=== PATIENT | female | born 1995 | race Caucasian/White ===

== ENCOUNTER → 2016-11-29 | Outpatient (CLI) | payer OTHER ==
[2016-12-01 15:20] LABS: BLACK RACE non-Black (()); GESTIONAL AGE FOR RISK ESTIMAT Scan estimate (()); MATERNAL WEIGHT/LBS 107 lbs (()); RECOMMENDED FOLLOW UP None. (()); TRISOMY 18 ESTIMATED RISK < 1/100 (())
[2016-12-02 07:25] LABS: GENERAL TEST INFO (QUAD SCREE) SEE COMMENTS (()); INHIBIN SEE COMMENTS (()); INTERPRETATION (QUAD SCREEN) SEE COMMENTS (()); OTHER INFORMATION (QUAD SCRN) Initial testing (()); uE3 SEE COMMENTS (())
== END ==
LOC: MOB LAB 14:47
PROVIDERS: ATTEND Family Medicine
DX: Z36 Encounter for antenatal screening of mother (principal); Z3A.17 17 weeks gestation of pregnancy
CPT/HCPCS: 81511

== ENCOUNTER → 2016-12-20 | Outpatient (CLI) | payer OTHER ==
--- NOTE | 2016-12-20 15:08 | DI ---
US OB GTE 14 WEEKS,12/20/2016 12:54 PM: Clinical History: screening for malformations. Previous Exam: None at this facility. Findings: Multiple grayscale and color Doppler sonographic images are obtained through the pelvis demonstrating a single live intrauterine gestation in transverse lie. Amniotic fluid is subjectively normal. There is normal motion of the limbs with normal respiratory motion and detected Doppler heart tones m easuring 161 beats per minute. The cervix is long and closed measuring 3.7 cm in length. The placenta is posterior and grade 1 without visible defects. Estimated gestational age was determined by a composite of biparietal diameter, head circumference, a bdominal circumference and femur length yielding an estimated gestational age by ultrasound of 19 wee ks 6 days. anatomic survey is within normal limits. Estimated weight was 330 g (49th percentile). Impression: Single live intrauterine gestation with size equal to dates.
== END ==
LOC: US 12:50
PROVIDERS: ATTEND Family Medicine
DX: Z36 Encounter for antenatal screening of mother (principal); Z3A.20 20 weeks gestation of pregnancy
CPT/HCPCS: 76805

== ENCOUNTER → 2016-12-27 | Outpatient (CLI) | payer OTHER | LOC: MOB LAB 15:53 | PROVIDERS: ATTEND Family Medicine | DX: O98.312 Other infections with a predominantly sexual mode of transmission complicating pregnancy, second trimester (principal); Z3A.21 21 weeks gestation of pregnancy | CPT/HCPCS: 87491; 87591 ==

== ENCOUNTER 2016-12-31 20:50 | Emergency (ER) | payer OTHER ==
[2016-12-31 20:57] VITALS: RESP 18; TEMP 97.4
[2016-12-31] MEDS ORDERED: Lidocaine 1% 10 MG/ML - 20 ML VIAL SUBCUT ONE (20:59)
--- NOTE | 2016-12-31 22:30 | PDOC ---
Hand / Wrist Injury HPI - General Chief Complaint: Laceration / Wound Stated Complaint: CUT 3RD DIGIT ON LEFT HAND Date Seen by Provider: 12/31/16 Time Seen by Provider: 21:00 Source: POSITIVE: Patient Exam Limitations: POSITIVE: No limitations Nurse's Notes Reviewed & Considered: Yes - History of Present Illness Initial Comments: The patient is a 21-year-old female. Approximately one hour [employer] she was at work using a knife to make some pizza. She accidentally lacerated the volar aspect of the tip of the left middle finger. Instant occurred approximately one hour [employer]. Tetanus status is current. Have you received a tetanus shot in the past 10 years?: Yes Body Location Affected: REPORTS: Upper Extremity (L) Timing: REPORTS: Abrupt Duration: 1 hour Severity: Moderate Location at Time of Onset: REPORTS: Work Context: REPORTS: Laceration Location of Injury: REPORTS: Left, 3rd Finger Quality: REPORTS: "Pain" Modifying Factors: REPORTS: Other (Direct palpation) Associated Symptoms: DENIES: Arm (R), Arm (L), Tingling Distally, Numbness Distally, Loss of Feeling, Loss of Power, Other Any Prior Injuries Related to Current Complaint?: No - Patient Home Medications Home Medications: Home Medications Ferrous Gluconate [Fergon] 324 mg PO QD #30 tab 07/27/16 Ascorbic Acid [Vitamin C] 1,000 mg PO QD tab 11/17/16 Butalb/Acetaminophen/Caffeine [Fioricet 50-300-40 Mg Capsule] 1 cap PO Q4H #30 cap 11/17/16 Folic Acid 1 tab PO DAILY tab 11/17/16 - Patient Allergies Allergies/Adverse Reactions: Allergies Allergy/AdvReac Type Severity Reaction Status Date / Time azithromycin [From Zithromax] Allergy RASH Verified 12/31/16 20:52 cephalexin monohydrate Allergy RASH Verified 12/31/16 20:52 [From Keflex] latex Allergy RASH Verified 12/31/16 20:52 Penicillins Allergy RASH Verified 12/31/16 20:52 Past Medical History - heen HEENT History: Denies History Cardiovascular History: Denies History Respiratory History: Denies History Gastrointestinal History: Denies History Genitourinary History: Denies History Endocrine History: Denies History Musculoskeletal History: Denies History Prosthesis or Implant: No Neurological History: Denies History Blood Disorders: Denies History Psychiatric History: Denies History History of Sexually Transmitted Diseases: No Female Reproductive History: Denies History Obstetrical History: Other (please comment) Additional Obstetrical History: 21 WEEKS ALONG ON [id number] Cancer History: Denies History In Past Year Been Physically Harmed or Verbally Threatened: No History of MDRO: No History of Other Communicable Diseases: No Tobacco Use: Current Every Day Smoker Alcohol Use: None Substance Use Type: None Previous Surgical History: Yes Type / Date of Surgery: left 4th digit amputated at age 8, tonsils Significant Family History: No pertinent family hx Past Medical History Reviewed: Reviewed - No Changes ROS - Limitations ROS Limitations: No Limitations Constitution: REPORTS: Denies Symptoms Cardiovascular: REPORTS: Denies Cardiac Symptoms Respiratory: REPORTS: Denies Resp Symptoms Neurological: REPORTS: Denies Neuro Symptoms Gastrointestinal: REPORTS: Denies GI Symptoms Endocrine: REPORTS: Denies Symptoms Musculoskeletal: REPORTS: Denies MS Symptoms Genitourinary: REPORTS: Denies Symptoms Eyes: REPORTS: Denies Symptoms ENT: REPORTS: Denies Symptoms Skin: REPORTS: Other (Laceration tip of left third finger, volar aspect, 1.5 cm) Lympathic: REPORTS: Denies Lympathic Symptoms Immunologic: POSITIVE: Denies Symptoms Psychiatric: POSITIVE: Denies Psych Symptoms Hand / Wrist Injury Exam - General Appearance General Appearance: POSITIVE: Alert, Cooperative, No Acute Distress - Extremities Upper Extremity: POSITIVE: No Evidence of FB, Normal ROM, Soft Tissue Tenderness , Uninjured Above Wrist, See Diagram. NEGATIVE: Bony Tenderness, Swelling, Ecchymosis, Deformity, Complete Nail Injury, Partial Avulsion, Limited ROM, Snuff Box Position Tender, Axial Thumb Load Pain Neurovascular / Tendon: POSITIVE: Sensation Normal, Motor Normal, No Vascular Compromise, Tendon Function Normal Skin: POSITIVE: See Diagram - Respiratory / CVS Respiratory / CVS: POSITIVE: Chest Non Tender, No Ecchymosis, Breath Sounds Normal, No Respiratory Distress, Heart Sounds Normal, Regular Rate/Rhythm Peripheral Pulses: Radial (R): 2+, Radial (L): 2+ Images - Hands Hand: 1 - Laceration Procedure - Laceration/Wound Repair Site of Lac/Wound:: Tip of left middle finger, volar aspect Time of Suture Placement:: 21:10 Wound Length (cm): 1.5 Wound's Depth, Shape: Into subcutaneous tissue, Linear Distal CMS: Yes Skin Prep: Sterile Field Maintained, Sterile Drapes Applied, Sterile Dressing Applied, Shur-Clens Local Anesthesia Used - Indicate Amt Used in Comment: Lidocaine 1%: Yes Irrigated w/ Saline (mL): 10 Wound Explored: No foreign body removed Wound Debrided: Minimal Wound Repaired With: Sutures single layer Suture Size/Type: 5:0 Number of Sutures: 3 Layer Closure?: No Drain Placement: No Sterile Dressing Applied?: Yes Splint Applied?: No Hand / Wrist Injury Progress - Patient's Progress Pain Medication Addressed: POSITIVE: Yes (recommended Advil or Tylenol) School/Work Release Addressed: POSITIVE: Yes (may return to work) Re-Examine Time: 21:25 Re-Examine Comment: Primary closure complete Status: POSITIVE: Improved, Re-Examined - Consult Counseled: POSITIVE: Patient, RE: DX, RE: Need for F/U Patient Care Time - Estimated PCT Patient Care Time (In Minutes): 25 Vital Signs - Recent Vital Signs Vital Signs: Vital Signs (Last 8 hours) Temp Pulse Resp BP Pulse Ox 12/31/16 20:54 97.4 F 102 H 18 106/64 96 - VS Reviewed Vital Signs Reviewed: Yes Discharge Clinical Impression: Laceration - injury Discharge Disposition: Discharged to Home Condition: Stable Patient Instructions Given at Discharge: Laceration (ED) Additional Instructions: Keep sutures clean. Return in 10 days for suture removal. You may return to work. Return sooner anytime at first sign of infection or if condition worsens in any way. Follow Up With: MEREDITH GAUTAM [Primary Care Provider] - (Instructions as above. Return in 10 days for suture removal.)
== END 2016-12-31 21:21 | disposition home or self-care (01) ==
LOC: ER 20:50
DX: S61.213A Laceration without foreign body of left middle finger without damage to nail, initial encounter (principal); W26.0XXA Contact with knife, initial encounter; Y92.512 Supermarket, store or market as the place of occurrence of the external cause; Y99.0 Civilian activity done for income or pay
CPT/HCPCS: 12001; 99282; J2001

== ENCOUNTER 2017-01-21 20:30 | Outpatient (CLI) | payer OTHER ==
[2017-01-21] MEDS ORDERED: NORMAL SALINE 10 ML SYRINGE FLUSH IVP PRN (20:41)
[2017-01-21] MEDS ORDERED: ACETAMINOPHEN 325 MG TABLET PO ONE (20:42)
[2017-01-21 20:44] VITALS: RESP 16; TEMP 98.1
[2017-01-21 20:59] LABS: HEMATOCRIT 33.5 % (37.0-47.0); HEMOGLOBIN 11.6 g/dL (12.0-16.0); MEAN CORPUSCULAR HEMOGLOBIN 30.9 PG (27-31); MEAN CORPUSCULAR HGB CONC 34.6 g/dL (33-37); MEAN PLATELET VOLUME 10.1 FL (7.4-12.2); RDW COEFFICIENT OF VARIATION 12.5 % (11.5-14.5); RED BLOOD COUNT 3.76 10^6/uL (4.20-5.40); WHITE BLOOD COUNT 12.51 10^3/uL (4.8-10.8)
[2017-01-21 21:09] LABS: ASPARTATE AMINO TRANSFERASE 21 IU/L (8-39); BILIRUBIN,TOTAL 0.3 mg/dL (0.3-1.2); BLOOD UREA NITROGEN 9 mg/dL (7-22); CALCIUM 8.9 mg/dL (8.7-10.7); CHLORIDE 107 meq/L (98-112); CREATININE 0.6 mg/dL (0.50-1.20); EST GLOMERULAR FILTRATION > 60 (>60 ml/min/1.73m(2)); GLUCOSE 74 mg/dL (78-110); POTASSIUM 3.7 meq/L (3.8-5.2); SODIUM 136 meq/L (135-145); TOTAL PROTEIN 6.3 g/dL (6.1-8.0); URIC ACID 2.8 mg/dl (2.5-6.2)
[2017-01-21] MEDS ORDERED: Propranolol Tab 10 MG TAB PO ONE (21:32)
[2017-01-22] MEDS ORDERED: Propranolol Tab 10 MG TAB PO SCH (21:17)
--- NOTE | 2017-01-24 17:48 | PDOC(PROG) ---
Intake - - Reason for Visit/Chief Complaint: Cramping Additional Reason(s) for Visit: "discomfort" Admitted From: Home - Estimated Due Date: 05/09/17 Gestational Age in Weeks and Days: 25 Weeks and 0 Days : 1 Para: 0 Term Births: 0 Births: 0 Number of Abortions (Spont./Elective): 0 Living Children: 0 - Labs Blood Type and Rh: O- Hepatitis B Surface Antigen: Absent HIV: Negative Rubella Status: Immune VDRL/RPR: Absent Maternal - Vital Signs Last Taken Vital Signs: Vital Signs - Last Taken Temperature 98.1 F 01/21/17 20:41 Pulse Rate 107 H 01/21/17 20:41 Respiratory Rate 16 01/21/17 20:41 Blood Pressure 121/71 01/21/17 20:41 Pulse Ox 98 01/21/17 20:41 - Uterine Activity Uterine Contraction Monitor Mode: External Uterine Contraction Pattern: Absent Uterine Tone Measurement Phase: Resting - Vaginal Discharge Vaginal Bleeding Amount: None Vaginal Discharge Amount: None Monitoring - Uterine Activity Uterine Contraction Monitor Mode: External Uterine Contraction Pattern: Absent Uterine Tone Measurement Phase: Resting Results - Labs CBC and BMP: 01/21/17 20:54 01/21/17 20:54 - Bedside Testing Bedside Urine Ketone: Negative Bedside Urine Leukocytes Esterase: Negative Bedside Urine Nitrite: Negative Bedside Urine Occult Blood: Negative Bedside Urine Protein: Negative Bedside Specific [place]: 1.020 Assessment and Plan - Patient Problems (1) Pelvic pain affecting Status: Acute
== END 2017-01-21 21:45 | disposition home or self-care (01) ==
LOC: OBOP 20:30
PROVIDERS: ATTEND Family Medicine
DX: O26.892 Other specified pregnancy related conditions, second trimester (principal); R25.2 Cramp and spasm; R51 Headache; Z3A.24 24 weeks gestation of pregnancy
CPT/HCPCS: 36415; 80053; 81003; 83615; 84550; 85025; 99211

== ENCOUNTER 2017-02-06 02:05 | Emergency (ER) | payer OTHER ==
[2017-02-06] MEDS ORDERED: ONDANSETRON 4 MG/2 ML VIAL IVP ONE (02:18)
[2017-02-06] MEDS ORDERED: Sodium Chloride 0.9% 1,000 ML PRIMARY IV ONE (02:18)
[2017-02-06 02:21] VITALS: RESP 20; TEMP 97.6
--- NOTE | 2017-02-06 02:24 | PDOC ---
Gen Adult / Medical Screen HPI - General Chief Complaint: General Medical Stated Complaint: Epigastric Pain Date Seen by Provider: 02/06/17 Time Seen by Provider: 02:19 Source: POSITIVE: Patient, Spouse Exam Limitations: POSITIVE: No limitations Nurse's Notes Reviewed & Considered: Yes - Indicators Temperature Between 95 and 101 Degrees: Yes Respirations Between 12 and 20: Yes Blood Pressure Between 100-165 (sys) and 60-100 (doan): Yes Pulse Range Between 60-105 (100 for age > 60 years): Yes Severe Pain (Greater than 5/10 Reported): No Chest or Abdominal Pain: Yes Inability to Walk: No Pt Reports Active High Risk Cond. (TB/Hepatitis/HIV/Chemo): No Abnormal Mental Status: No - History of Present Illness Initial Comments: Patient comes in today with chief complaint of nausea and vomiting. Patient ate a braut and 6 hours later she began vomiting. She's had burning sensation in her chest and upper abdomen. Denies any fever chills or sweats. She is presently 27 weeks gestation. Body Location Affected: REPORTS: Chest, Abdomen Timing: REPORTS: Abrupt Duration: <24 hours Similar Symptoms Previously: No Recent Care Received: REPORTS: Denies Any Prior Injuries Related to Current Complaint?: No - Patient Home Medications Home Medications: Home Medications Ferrous Gluconate [Fergon] 324 mg PO QD #30 tab 07/27/16 Ascorbic Acid [Vitamin C] 1,000 mg PO QD tab 11/17/16 Butalb/Acetaminophen/Caffeine [Fioricet 50-300-40 Mg Capsule] 1 cap PO Q4H #30 cap 11/17/16 RX: Folic Acid 1 tab PO DAILY tab 11/17/16 RX: Propranolol HCl 10 mg PO TID #30 tab 01/24/17 - Patient Allergies Allergies/Adverse Reactions: Allergies Allergy/AdvReac Type Severity Reaction Status Date / Time azithromycin [From Zithromax] Allergy RASH Verified 02/06/17 02:09 cephalexin monohydrate Allergy RASH Verified 02/06/17 02:09 [From Keflex] latex Allergy RASH Verified 02/06/17 02:09 Penicillins Allergy RASH Verified 02/06/17 02:09 Past Medical History - heen HEENT History: Denies History Cardiovascular History: Denies History Respiratory History: Denies History Gastrointestinal History: Denies History Genitourinary History: Denies History Endocrine History: Denies History Musculoskeletal History: Denies History Prosthesis or Implant: No Neurological History: Denies History Blood Disorders: Denies History Psychiatric History: Denies History History of Sexually Transmitted Diseases: No Cancer History: Denies History History of MDRO: No History of Other Communicable Diseases: No Alcohol Use: None Substance Use Type: None Previous Surgical History: Yes Type / Date of Surgery: left 4th digit amputated at age 8, tonsils Significant Family History: No pertinent family hx ROS - Limitations ROS Limitations: No Limitations Constitution: REPORTS: Denies Symptoms Cardiovascular: REPORTS: Chest Pain Respiratory: REPORTS: Denies Resp Symptoms Neurological: REPORTS: Denies Neuro Symptoms Gastrointestinal: REPORTS: Abdominal Pain, Nausea, Vomitting Endocrine: REPORTS: Denies Symptoms Musculoskeletal: REPORTS: Back Pain Genitourinary: REPORTS: Denies Symptoms Eyes: REPORTS: Denies Symptoms ENT: REPORTS: Denies Symptoms Skin: REPORTS: Denies Skin Symptoms Lympathic: REPORTS: Denies Lympathic Symptoms Immunologic: POSITIVE: Denies Symptoms Psychiatric: POSITIVE: Denies Psych Symptoms Gen Adult/Medical Screen Exam - General Appearance General Appearance: POSITIVE: Alert, Cooperative, No Evidence of Trauma, Moderate Distress - HEENT HEENT: POSITIVE: Head Inspection Nml, Eyes Inspection Nml, Ears Inspection Nml, Nose Inspection Nml, PERRL, EOMI - Pupils Pupil Size: 4 mm: Bilateral - Neck Neck: POSITIVE: Normal Inspection, Thyroid Normal - Respiratory Respiratory: POSITIVE: No Respiratory Distress, Breath Sounds Normal, Chest Non- Tender - Cardiovascular Cardiovascular: POSITIVE: Regular Rate & Rhythm, No Murmur, No Gallop, PMI Normal - Abdomen Abdomen: Normal Bowel Sounds: (All Quadrants), Tenderness Noted: (All Quadrants) , Palpable Mass Noted: (All Quadrants) (patient is 27 weeks gestation), Distention: (All Quadrants) - Back Back: POSITIVE: Normal Inspection - Neurological / Psychological Mental Status: POSITIVE: Mood Normal, Affect Normal Orientation: POSITIVE: Oriented x 3 - Skin Skin: POSITIVE: Normal Color, Warm, Dry, No Rash - Extremities Extremity: Non-Tender: (All Extremities), Normal ROM: (All Extremities), Normal Inspection: (All Extremities) Gen Adlt/Medical Scrn Progress - Results Reviewed by me Lab Results Reviewed: Yes Lab Results:: Laboratory Results 02/06/17 Range/Units 02:28 WBC 11.16 H (4.8-10.8) 10^3/uL RBC 4.12 L (4.20-5.40) 10^6/uL Hgb 12.4 (12.0-16.0) g/dL Hct 36.9 L (37.0-47.0) % MCV 89.6 (81-99) FL MCH 30.1 (27-31) PG MCHC 33.6 (33-37) g/dL RDW Std Deviation 40.9 (39-50) fL RDW Coeff of Cristhian 12.8 (11.5-14.5) % Plt Count 246 (140-350) 10*3/uL MPV 10.0 (7.4-12.2) FL Immature Gran % (Auto) 0.4 (0-5) % Neut % (Auto) 68.0 (50-80) % Lymph % (Auto) 21.2 (10-50) % [place] % (Auto) 8.8 (5-15) % Eos % (Auto) 1.3 (0-8) % Baso % (Auto) 0.3 (0-1) % Immature Gran # (Auto) 0.04 10*3/UL Neut # (Auto) 7.59 10*3/UL Lymph # (Auto) 2.37 10*3/uL [place] # (Auto) 0.98 H (0.3-0.8) 10*3/UL Eos # (Auto) 0.15 10*3/UL Baso # (Auto) 0.03 10*3/UL WBC Morphology Comment Normal morphology (NORM) Plt Morphology Comment Normal morphology (NORM) RBC Morph Comment Normal morphology (NORM) Sodium 139 (135-145) meq/L Potassium 3.5 L (3.8-5.2) meq/L Chloride 109 (98-112) meq/L Carbon Dioxide 21 L (23-33) meq/L Anion Gap 9 (5-20) BUN 7 (7-22) mg/dL Creatinine 0.5 (0.50-1.20) mg/dL Estimated GFR > 60 (>60 ml/min/1.73m(2)) BUN/Creatinine Ratio 14.00 (6-20) Glucose 78 (78-110) mg/dL Calculated Osmolality 284.0 (267-292) mOsm/kg Calcium 9.0 (8.7-10.7) mg/dL Magnesium 2.0 (1.6-2.4) mg/dL Total Bilirubin 0.4 (0.3-1.2) mg/dL AST 24 (8-39) IU/L ALT 21 (9-52) IU/L Alkaline Phosphatase 88 (38-126) IU/L Total Protein 6.9 (6.1-8.0) g/dL Albumin 3.9 (3.5-4.8) g/dL Globulin 3.1 (2.50-4.10) g/dL Albumin/Globulin Ratio 1.20 L (1.3-2.0) mg/g - Patient's Progress Pain Medication Addressed: POSITIVE: No Re-Examine Time: 03:21 Status: POSITIVE: Improved MDM / ED Course: Patient was examined, an IV started, blood drawn and sent to the lab for studies. She received a liter of normal saline, 8 mg of IV Zofran, and Pepcid. Patient's symptoms improved with significant improvement of her nausea. Assessment: Nausea and vomiting possible etiologies include #1 #2 gastroenteritis related to ingestion of greasy food. - Consult Counseled: POSITIVE: Patient, Family, RE: Lab Results, RE: DX, RE: Need for F/U Patient Care Time - Estimated PCT Patient Care Time (In Minutes): 30 Vital Signs - Recent Vital Signs Vital Signs: Vital Signs (Last 8 hours) Temp Pulse Resp BP Pulse Ox 02/06/17 02:06 97.6 F 103 H 20 119/80 97 - VS Reviewed Vital Signs Reviewed: Yes Discharge Clinical Impression: Nausea and vomiting during Discharge Disposition: Discharged to Home Condition: Stable Patient Instructions Given at Discharge: Nausea and Vomiting in (ED)
[2017-02-06 02:31] LABS: BASOPHILS # (AUTO) 0.03 10*3/UL; BASOPHILS % (AUTO) 0.3 % (0-1); EOSINOPHILS # (AUTO) 0.15 10*3/UL; EOSINOPHILS % (AUTO) 1.3 % (0-8); HEMATOCRIT 36.9 % (37.0-47.0); HEMOGLOBIN 12.4 g/dL (12.0-16.0); LYMPHOCYTES # (AUTO) 2.37 10*3/uL; MEAN CORPUSCULAR HEMOGLOBIN 30.1 PG (27-31); MEAN CORPUSCULAR HGB CONC 33.6 g/dL (33-37); MEAN CORPUSCULAR VOLUME 89.6 FL (81-99); MONOCYTES # (AUTO) 0.98 10*3/UL (0.3-0.8); MONOCYTES % (AUTO) 8.8 % (5-15); NEUTROPHILS # (AUTO) 7.59 10*3/UL; RED BLOOD COUNT 4.12 10^6/uL (4.20-5.40)
[2017-02-06 02:38] LABS: PLATELET MORPHOLOGY COMMENT NORMAL MORPHOLOGY (NORM); RBC MORPHOLOGY COMMENT NORMAL MORPHOLOGY (NORM); WBC MORPHOLOGY COMMENT NORMAL MORPHOLOGY (NORM)
[2017-02-06 02:47] LABS: BLOOD UREA NITROGEN 7 mg/dL (7-22); EST GLOMERULAR FILTRATION > 60 (>60 ml/min/1.73m(2)); SERUM ALBUMIN 3.9 g/dL (3.5-4.8)
[2017-02-06] MEDS ORDERED: Famotidine Inj 20 MG in Normal Saline Flush 10 ML IVP ONE (03:20)
[2017-02-06] MEDS ORDERED: FAMOTIDINE 20 MG/2 ML VIAL IVP ONE (03:21)
== END 2017-02-06 03:38 | disposition home or self-care (01) ==
LOC: ER 02:05
DX: O21.2 Late vomiting of pregnancy (principal); R10.13 Epigastric pain; Z3A.27 27 weeks gestation of pregnancy
CPT/HCPCS: 80053; 83735; 84702; 85025; 96361; 96374; 96375; 99282; 99283; J2405; J7030

== ENCOUNTER → 2017-02-16 | Outpatient (CLI) | payer OTHER ==
[2017-02-16 16:49] LABS: HEMATOCRIT 33.2 % (37.0-47.0); HEMOGLOBIN 11.2 g/dL (12.0-16.0); MEAN CORPUSCULAR HEMOGLOBIN 29.9 PG (27-31); MEAN CORPUSCULAR HGB CONC 33.7 g/dL (33-37); MEAN CORPUSCULAR VOLUME 88.8 FL (81-99); MEAN PLATELET VOLUME 9.9 FL (7.4-12.2); RED BLOOD COUNT 3.74 10^6/uL (4.20-5.40)
== END ==
LOC: LAB 15:15
PROVIDERS: ATTEND Family Medicine
DX: Z36 Encounter for antenatal screening of mother (principal); O36.0130 Maternal care for anti-D [Rh] antibodies, third trimester, not applicable or unspecified; O99.333 Smoking (tobacco) complicating pregnancy, third trimester; Z3A.28 28 weeks gestation of pregnancy
CPT/HCPCS: 36415; 82950; 84443; 85027; 86850; 86900; 86901; J2790

== ENCOUNTER 2017-02-25 12:00 | Outpatient (CLI) | payer OTHER ==
[2017-02-25 13:24] VITALS: RESP 18; TEMP 98.1
--- NOTE | 2017-03-01 22:59 | PDOC(PROG) ---
Intake - - Reason for Visit/Chief Complaint: Low Back Pain, Cramping Admitted From: work at [employer] - Estimated Due Date: 05/09/17 Gestational Age in Weeks and Days: 30 Weeks and 1 Days : 1 Para: 0 Term Births: 0 Births: 0 Number of Abortions (Spont./Elective): 0 Living Children: 0 - Labs Blood Type and Rh: O- Group B Strep: Unknown Hepatitis B Surface Antigen: Absent HIV: Negative Rubella Status: Immune VDRL/RPR: Absent Maternal - Vital Signs Last Taken Vital Signs: Vital Signs - Last Taken Temperature 98.1 F 02/25/17 12:59 Pulse Rate 95 02/25/17 12:59 Respiratory Rate 18 02/25/17 12:59 Blood Pressure 101/60 02/25/17 12:59 Pulse Ox 98 02/25/17 12:59 - Uterine Activity Uterine Contraction Monitor Mode: External Contraction Frequency(minutes): 1-3, irritability Contraction Duration (seconds): 40-70 Uterine Contraction Pattern: Regular Uterine Tone Measurement Phase: soft Uterine Contraction Intensity: Mild - Vaginal Discharge Vaginal Bleeding Amount: None Vaginal Discharge Amount: Scant Vaginal Discharge Description: Thin Vaginal Itching: No Monitoring - Uterine Activity Uterine Contraction Monitor Mode: External Contraction Frequency(minutes): 1-3, irritability Contraction Duration (seconds): 40-70 Uterine Contraction Pattern: Regular Uterine Tone Measurement Phase: soft Uterine Contraction Intensity: Mild Assessment and Plan - Patient Problems (1) Uterine cramping Status: Acute (2) Low back pain Status: Acute Qualifiers: Chronicity: acute Back pain laterality: bilateral Sciatica presence : without sciatica Qualified Description: Acute bilateral low back pain without sciatica Qualifier Code(s): (M54.5) Low back pain
== END 2017-02-25 13:53 | disposition home or self-care (01) ==
LOC: OBOP 12:00
PROVIDERS: ATTEND Family Medicine
DX: O26.893 Other specified pregnancy related conditions, third trimester (principal); N94.89 Other specified conditions associated with female genital organs and menstrual cycle; M54.5 Low back pain; Z3A.29 29 weeks gestation of pregnancy
CPT/HCPCS: 59025; 99211

== ENCOUNTER → 2017-02-27 | Outpatient (CLI) | payer OTHER ==
--- NOTE | 2017-02-27 14:18 | DI ---
LIMITED OBSTETRICAL ULTRASOUND, 02/27/2017 1:00 PM Clinical History: Uterine size-date discrepancy. Size greater than dates. Previous Exam: 12/20/2016. ADJUSTED LMP: 08/02/2016. There is a single live IUP currently in vertex presentation. Amnionic fluid content is normal for thi s stage of . activity is observed as follows: cardiac and extremity. The placenta is p osterior corpus and Grade 1. heart rate is 156 beats/minute and regular. BPD, HC, AC, and FL me asurements are 78 mm, 286 mm, 272 mm, and 58 mm, respectively. These measurements correspond to EGA v alues of 31 weeks 3 days, 31 weeks 3 days, 31 weeks 2 days, and 30 weeks 3 days, respectively. Compos ite EGA is 31 weeks 1 day. The [place] EDC is 04/30/2017. EDC by adjusted LMP is 05/09/2017. LMP percentile is 78%. Estimated weight is 1681 g, plus or minus, 245 g. Readin. Single live fetus with vertex presentation and normal amniotic fluid content. Placenta is posteri or corpus and grade 1. 2. The composite EGA is 31 weeks one day with an ultrasound EDC of 04/30/2017. Based on the adjusted LMP of 08/02/2016, the EDC would be 05/09/2017. 3. LMP percentile is 78%. Estimated weight is 1681 g, plus or minus, 245 g.
== END ==
LOC: US 12:55
PROVIDERS: ATTEND Family Medicine
DX: O26.843 Uterine size-date discrepancy, third trimester (principal); Z3A.30 30 weeks gestation of pregnancy
CPT/HCPCS: 76815

== ENCOUNTER 2017-03-28 14:46 | Outpatient (CLI) | payer OTHER ==
[2017-03-28 15:15] VITALS: RESP 18; TEMP 97.7
--- NOTE | 2017-03-29 21:35 | PDOC(PROG) ---
Intake - - Reason for Visit/Chief Complaint: Contractions Admitted From: Home - Estimated Due Date: 05/09/17 Gestational Age in Weeks and Days: 34 Weeks and 1 Days : 1 Para: 0 Term Births: 0 Births: 0 Number of Abortions (Spont./Elective): 0 Living Children: 0 - Labs Blood Type and Rh: O- Group B Strep: Unknown Hepatitis B Surface Antigen: Absent HIV: Negative Rubella Status: Immune VDRL/RPR: Absent Maternal - Vital Signs Last Taken Vital Signs: Vital Signs - Last Taken Temperature 97.7 F 03/28/17 15:10 Pulse Rate 71 03/28/17 15:10 Respiratory Rate 18 03/28/17 15:10 Blood Pressure 117/72 03/28/17 15:10 Pulse Ox 100 03/28/17 15:10 - Uterine Activity Uterine Contraction Monitor Mode: External Contraction Frequency(minutes): x2 Contraction Duration (seconds): 40-50 Uterine Contraction Pattern: Irregular Uterine Tone Measurement Phase: Resting Uterine Contraction Intensity: Mild - Vaginal Discharge Vaginal Bleeding Amount: Spotting Vaginal Bleeding Description: Bright Red Vaginal Discharge Amount: Small Vaginal Discharge Description: Watery Vaginal Discharge Color: Clear Vaginal Discharge Odor: Odorless Vaginal Itching: No Monitoring - Uterine Activity Uterine Contraction Monitor Mode: External Contraction Frequency(minutes): x2 Contraction Duration (seconds): 40-50 Uterine Contraction Pattern: Irregular Uterine Tone Measurement Phase: Resting Uterine Contraction Intensity: Mild Results - Bedside Testing Bedside Urine Ketone: Negative Bedside Urine Leukocytes Esterase: Negative Bedside Urine Nitrite: Negative Bedside Urine Occult Blood: Negative Bedside Urine Protein: Negative Bedside Specific [place]: 1.015 Assessment and Plan - Patient Problems (1) False labor before 37 completed weeks of gestation Status: Acute Qualifiers: Trimester: third trimester Qualified Description: False labor before 37 completed weeks of gestation, third trimester Qualifier Code(s): ( O47.03) False labor before 37 completed weeks of gestation, third trimester
== END 2017-03-28 17:24 | disposition home or self-care (01) ==
LOC: OBOP 14:46
PROVIDERS: ATTEND Family Medicine
DX: O47.03 False labor before 37 completed weeks of gestation, third trimester (principal); Z3A.34 34 weeks gestation of pregnancy
CPT/HCPCS: 59025; 81003; 82731; 84112; 87480; 87510; 87660; 99211

== ENCOUNTER → 2017-04-05 | Outpatient (CLI) | payer OTHER ==
--- NOTE | 2017-04-05 14:48 | DI ---
LIMITED OBSTETRICAL ULTRASOUND, 04/05/2017 10:02 AM Clinical History: Uterine size-date discrepancy in the third trimester. Large for dates. Previous Exam: 02/27/2017. ADJUSTED LMP: 08/02/2016. There is a single live IUP currently in vertex presentation. Amnionic fluid content is is increased f or this stage of indicating mild polyhydramnios. Amniotic fluid index is 20.1 cm. act ivity is observed as follows: cardiac, extremity, and respiratory. The placenta is posterior corpus a nd Grade 1. heart rate is 132 beats/minute and regular. Distal femoral epiphyses are not yet vi sualized. BPD, HC, AC, and FL measurements are 90 mm, 328 mm, 316 mm, and 70 mm, respectively. These measurements correspond to EGA values of 36 weeks 4 days, 37 weeks 2 days, 35 weeks 4 days, and 36 we eks 0 days, respectively. Composite EGA is 36 weeks 3 days. The US EDC is 04/30/2017. EDC by adjusted LMP is 05/09/2017. LMP percentile is 70%. Estimated weight is 2799 g, plus or minus 409 g. Readin. Single live fetus with vertex presentation. Amniotic fluid content is slightly increased for this stage of indicating mild polyhydramnios. Amnionic fluid index is 20.1 cm. Placenta is post erior corpus and grade 1. 2. The composite EGA is 36 weeks 3 days with an ultrasound EDC of 04/30/2017. Based on the adjusted L MP of 08/02/2016, the EDC would be 05/09/2017. 3. LMP percentile is 70%. Estimated weight is 2799 g, plus or minus 409 g. 4. Distal femoral epiphyses are not yet visualized and these are usually seen at 35 weeks.
== END ==
LOC: US 09:58
PROVIDERS: ATTEND Family Medicine
DX: O26.843 Uterine size-date discrepancy, third trimester (principal); Z3A.35 35 weeks gestation of pregnancy
CPT/HCPCS: 76815

== ENCOUNTER 2017-04-11 21:40 | Outpatient (CLI) | payer OTHER ==
[~2017-04-11 21:40] MED LIST: NORMAL SALINE 10 ML SYRINGE FLUSH IVP PRN
[2017-04-11 22:39] VITALS: RESP 20; TEMP 98.4
--- NOTE | 2017-04-13 22:50 | PDOC(PROG) ---
Intake - - Reason for Visit/Chief Complaint: Contractions Admitted From: Home - Estimated Due Date: 05/09/17 Gestational Age in Weeks and Days: 36 Weeks and 2 Days : 1 Para: 0 Term Births: 0 Births: 0 Number of Abortions (Spont./Elective): 0 Living Children: 0 - Labs Blood Type and Rh: O- Group B Strep: Unknown Hepatitis B Surface Antigen: Absent HIV: Negative Rubella Status: Immune VDRL/RPR: Absent Maternal - Vital Signs Last Taken Vital Signs: Vital Signs - Last Taken Temperature 98.4 F 04/11/17 21:40 Pulse Rate 117 H 04/11/17 21:40 Respiratory Rate 20 04/11/17 21:40 Blood Pressure 128/79 04/11/17 21:40 Pulse Ox 97 04/11/17 21:40 - Uterine Activity Uterine Contraction Monitor Mode: External Contraction Frequency(minutes): 10 Contraction Duration (seconds): 130 Uterine Contraction Pattern: Irregular Uterine Tone Measurement Phase: Resting Uterine Contraction Intensity: Mild - Cervical Exam Cervical Dilation (cm): 3 Cervical Effacement Percentage: 75 Station: -2 Exam Performed By: Mayelin RN - Vaginal Discharge Vaginal Bleeding Amount: Scant Vaginal Bleeding Description: Brown Vaginal Discharge Amount: Small Vaginal Discharge Description: Watery Vaginal Discharge Odor: Odorless Monitoring - Uterine Activity Uterine Contraction Monitor Mode: External Contraction Frequency(minutes): 10 Contraction Duration (seconds): 130 Uterine Contraction Pattern: Irregular Uterine Tone Measurement Phase: Resting Uterine Contraction Intensity: Mild Romano Score - Romano Score Cervical Dilation: 3-4 cm Cervical Effacement: 60-70 Station: -2 Cervical Consistency: Soft Cervical Position: Anterior Romano Score Total: 9 Results - Bedside Testing Bedside Urine Ketone: Negative Bedside Urine Leukocytes Esterase: Moderate Bedside Urine Nitrite: Negative Bedside Urine Occult Blood: Large Bedside Urine Protein: Negative Bedside Specific [place]: 1.010 Assessment and Plan - Patient Problems (1) False labor before 37 completed weeks of gestation Status: Acute Qualifiers: Trimester: third trimester Qualified Description: False labor before 37 completed weeks of gestation, third trimester
== END 2017-04-12 00:40 | disposition home or self-care (01) ==
LOC: OBOP 21:40
PROVIDERS: ATTEND Family Medicine
DX: O47.03 False labor before 37 completed weeks of gestation, third trimester (principal); Z3A.36 36 weeks gestation of pregnancy
CPT/HCPCS: 59025; 81003; 99211

== ENCOUNTER → 2017-04-11 | Outpatient (CLI) | payer OTHER | LOC: MOB LAB 16:47 | PROVIDERS: ATTEND Family Medicine | DX: Z36 Encounter for antenatal screening of mother (principal); Z3A.36 36 weeks gestation of pregnancy | CPT/HCPCS: 87150 ==

== ENCOUNTER 2017-04-12 09:51 | Outpatient (CLI) | payer OTHER ==
[2017-04-12 10:11] VITALS: RESP 18; TEMP 97.9
--- NOTE | 2017-04-13 22:47 | PDOC(PROG) ---
Intake - - Reason for Visit/Chief Complaint: Contractions Admitted From: Home - Estimated Due Date: 05/09/17 Gestational Age in Weeks and Days: 36 Weeks and 2 Days : 1 Para: 0 Term Births: 0 Births: 0 Number of Abortions (Spont./Elective): 0 Living Children: 0 - Labs Blood Type and Rh: O- Group B Strep: Unknown Hepatitis B Surface Antigen: Absent HIV: Negative Rubella Status: Immune VDRL/RPR: Absent Maternal - Vital Signs Last Taken Vital Signs: Vital Signs - Last Taken Temperature 97.9 F 04/12/17 10:10 Pulse Rate 86 04/12/17 10:10 Respiratory Rate 18 04/12/17 10:10 Blood Pressure 127/68 04/12/17 10:10 Pulse Ox 98 04/12/17 10:10 - Uterine Activity Uterine Contraction Monitor Mode: External Contraction Frequency(minutes): x2 Contraction Duration (seconds): 100 Uterine Contraction Pattern: Regular Uterine Tone Measurement Phase: Resting - Cervical Exam Cervical Dilation (cm): 2 Cervical Effacement Percentage: 50 Station: -2 Exam Performed By: Monica - Vaginal Discharge Vaginal Bleeding Amount: None Vaginal Discharge Amount: None Monitoring - Uterine Activity Uterine Contraction Monitor Mode: External Contraction Frequency(minutes): x2 Contraction Duration (seconds): 100 Uterine Contraction Pattern: Regular Uterine Tone Measurement Phase: Resting Results - Bedside Testing Bedside Urine Ketone: Negative Bedside Urine Leukocytes Esterase: Negative Bedside Urine Nitrite: Negative Bedside Urine Occult Blood: Moderate Bedside Urine Protein: Negative Bedside Specific [place]: 1.015 Assessment and Plan - Patient Problems (1) False labor before 37 completed weeks of gestation Status: Acute Qualifiers: Trimester: third trimester Qualified Description: False labor before 37 completed weeks of gestation, third trimester
== END 2017-04-12 11:35 | disposition home or self-care (01) ==
LOC: OBOP 09:51
PROVIDERS: ATTEND Family Medicine
DX: O47.03 False labor before 37 completed weeks of gestation, third trimester (principal); Z3A.36 36 weeks gestation of pregnancy
CPT/HCPCS: 59025; 81003; 99211

== ENCOUNTER 2017-04-12 20:22 | Outpatient (CLI) | payer OTHER ==
[2017-04-12] MEDS ORDERED: NORMAL SALINE 10 ML SYRINGE FLUSH IVP PRN (20:24)
[2017-04-12 20:44] VITALS: RESP 18; TEMP 98.3
--- NOTE | 2017-04-14 05:59 | PDOC(PROG) ---
Intake - - Reason for Visit/Chief Complaint: Contractions Admitted From: Home - Estimated Due Date: 05/09/17 Gestational Age in Weeks and Days: 36 Weeks and 3 Days : 1 Para: 0 Term Births: 0 Births: 0 Number of Abortions (Spont./Elective): 0 Living Children: 0 - Labs Blood Type and Rh: O- Group B Strep: Negative Hepatitis B Surface Antigen: Absent HIV: Negative Rubella Status: Immune VDRL/RPR: Absent Maternal - Vital Signs Last Taken Vital Signs: Vital Signs - Last Taken Temperature 98.3 F 04/12/17 20:42 Pulse Rate 96 04/12/17 20:42 Respiratory Rate 18 04/12/17 20:42 Blood Pressure 126/77 04/12/17 20:42 Pulse Ox 98 04/12/17 20:42 - Uterine Activity Uterine Contraction Monitor Mode: External Contraction Frequency(minutes): 2-6 Contraction Duration (seconds): 30-60 Uterine Contraction Pattern: Irregular Uterine Tone Measurement Phase: Resting Uterine Contraction Intensity: Moderate - Cervical Exam Cervical Dilation (cm): 2 Cervical Effacement Percentage: 60 Station: -2 Exam Performed By: Joshua Santillan RN - Vaginal Discharge Vaginal Bleeding Amount: None Vaginal Discharge Amount: None Monitoring - Uterine Activity Uterine Contraction Monitor Mode: External Contraction Frequency(minutes): 2-6 Contraction Duration (seconds): 30-60 Uterine Contraction Pattern: Irregular Uterine Tone Measurement Phase: Resting Uterine Contraction Intensity: Moderate Results - Bedside Testing Bedside Urine Ketone: Negative Bedside Urine Leukocytes Esterase: Negative Bedside Urine Nitrite: Negative Bedside Urine Occult Blood: Trace Bedside Urine Protein: Negative Bedside Specific [place]: 1.010 Assessment and Plan - Assessment / Plan Additional Assessment/Plan Details: No signs of labor. Reassuring maternal and evaluation. Discharge to home in good condition.
== END 2017-04-12 22:45 | disposition home or self-care (01) ==
LOC: OBOP 20:22
PROVIDERS: ATTEND Obstetrics & Gynecology
DX: O47.03 False labor before 37 completed weeks of gestation, third trimester (principal); Z3A.36 36 weeks gestation of pregnancy
CPT/HCPCS: 59025; 81003; 99211

== ENCOUNTER 2017-04-24 12:19 | Inpatient (IN) | payer OTHER ==
[2017-04-24] MEDS ORDERED: NORMAL SALINE 10 ML SYRINGE FLUSH IVP PRN ×2 (12:27→13:35)
[2017-04-24] MEDS ORDERED: LIDOCAINE W/ SODIUM BICARB 0.5 ML SYR SUBD PRN ×2 (12:27→13:35)
[2017-04-24] MEDS ORDERED: ePHEDrine Inj 5 MG in Normal Saline Flush 1 ML IVP PRN (13:35)
[2017-04-24] MEDS ORDERED: OXYTOCIN 10 UNIT/1 ML IM PRN (13:35)
[2017-04-24] MEDS ORDERED: CefOXitin Inj 2 GM in Sodium Chloride 0.9% 100 ML IV PRN (13:35)
[2017-04-24] MEDS ORDERED: MISOPROSTOL 200 MCG TABLET RECTAL PRN (13:35)
[2017-04-24] MEDS ORDERED: Nalbuphine Inj 20 MG/ML Ampule IVP PRN (13:35)
[2017-04-24] MEDS ORDERED: METHYLERGONOVINE MALEATE 0.2 MG/1 ML VIAL IM PRN (13:35)
[2017-04-24] MEDS ORDERED: CITRIC ACID/SODIUM CITRATE 30 ML CUP PO PRN (13:35)
[2017-04-24] MEDS ORDERED: NALOXONE 0.4 MG/1 ML VIAL IVP PRN (13:35)
[2017-04-24] MEDS ORDERED: TERBUTALINE SULFATE 1 MG/1 ML SDV SUBCUT PRN (13:35)
[2017-04-24] MEDS ORDERED: BUTORPHANOL TARTRATE 2 MG/1 ML VIAL IVP PRN (13:35)
[2017-04-24] MEDS ORDERED: ONDANSETRON 4 MG/2 ML VIAL IVP PRN (13:35)
[2017-04-24] MEDS ORDERED: diphenhydrAMINE 50 MG/1 ML VIAL IVP PRN (13:35)
[2017-04-24] MEDS ORDERED: Famotidine Inj 20 MG in Normal Saline Flush 10 ML IVP PRN ×4 (13:35)
[2017-04-24] MEDS ORDERED: Metoclopramide Inj 10 MG/2 ML VIAL IV PRN (13:35)
[2017-04-24] MEDS ORDERED: CALCIUM CARBONATE 500 MG (TUMS) CHEWABLE TABLET PO PRN (13:35)
[2017-04-24] MEDS ORDERED: Carboprost Inj 250 MCG/ML AMP IM PRN (13:35)
[2017-04-24] MEDS ORDERED: Naloxone Inj 0.01 MG in Normal Saline Flush 1 ML IVP PRN (13:35)
[2017-04-24] MEDS ORDERED: Phenylephrine Inj 50 MCG in Normal Saline Flush 0.5 ML IVP PRN (13:35)
[2017-04-24] MEDS ORDERED: Lidocaine 1% 10 MG/ML - 20 ML VIAL SUBCUT PRN (13:35)
[2017-04-24] MEDS ORDERED: Oxytocin 20 Units + LR 1,000 ML IV SCH ×2 (13:45→19:00)
[2017-04-24] MEDS: Lactated Ringers-OB Dept 1,000 ML PRIMARY IV SCH ×2 (14:10→20:15)
[2017-04-24 14:29] LABS: HEMATOCRIT 37.7 % (37.0-47.0); HEMOGLOBIN 12.8 g/dL (12.0-16.0); MEAN CORPUSCULAR HEMOGLOBIN 29.4 PG (27-31); MEAN CORPUSCULAR VOLUME 86.5 FL (81-99); MEAN PLATELET VOLUME 11.2 FL (7.4-12.2); RED BLOOD COUNT 4.36 10^6/uL (4.20-5.40)
[2017-04-24] MEDS ORDERED: Zolpidem Tab 5 MG TAB PO PRN (18:20)
--- NOTE | 2017-04-24 19:35 | OB.PROGRES ---
Date and Time of Service: 04/24/17 @ 1912 Interval History: Pt is crying with contractions. Refusing anything for pain. Objective - Cervical Exam Cervical Exam: 4-5/90/0 per RN [place]: every 3-5 minutes; palpating mild-moderate Heart Rate: 145, moderate variability, has had category 1 strip today. Heart Rate Interpretation Category: Category I - Labs CBC and BMP: 04/24/17 14:25 Labs - Last 24 Hours: Laboratory Results 04/24/17 04/24/17 Range/Units 13:16 14:25 WBC 7.96 (4.8-10.8) 10^3/uL RBC 4.36 (4.20-5.40) 10^6/uL Hgb 12.8 (12.0-16.0) g/dL Hct 37.7 (37.0-47.0) % MCV 86.5 (81-99) FL MCH 29.4 (27-31) PG MCHC 34.0 (33-37) g/dL RDW Std Deviation 45.1 (39-50) fL RDW Coeff of Cristhian 14.6 H (11.5-14.5) % Plt Count 183 (140-350) 10*3/uL MPV 11.2 (7.4-12.2) FL Amnio Fld Other Info Negative (NEGATIVE) - Vital Signs Last Taken Vital Signs: Vital Signs - Last Taken Temperature 98.2 F 04/24/17 13:00 Pulse Rate 71 04/24/17 15:50 Respiratory Rate 20 04/24/17 13:00 Blood Pressure 122/82 04/24/17 15:50 Pulse Ox 98 04/24/17 13:00 Assessment and Plan - Patient Problems (1) Term Current Visit: Yes Status: Acute - Assessment / Plan Additional Assessment/Plan Details: -pt presented with painful uterine contractions that started yesterday, also has had diarrhea. Cervix 5/80/-1 per RN on presentation. Underwent AROM at 1545 with clear fluid. She has not made cervical change since then. IUPC was just inserted and will augment her labor with pitocin as needed to maintain adequate contractions. -GBS negative. -pt currently declining anything for pain. -expectant management.
[2017-04-24] MEDS: fentaNYL Inj 100 MCG/2 ML VIAL IV PRN ×2 (20:10→22:45)
[2017-04-24] MEDS ORDERED: Fent/Bupiv 2mcg/0.0625% Epid 250 ML ONE (21:01)
--- NOTE | 2017-04-24 21:15 | CRNA.PROCE ---
Central Neuraxis Block Placemt - - Safety Measures: Time Out Taken, Site Verified - - Type of Block: Epidural Reason for Block: Analgesia Moniters Used During Block: EKG, SPO2, NIBP Positioning: Sitting Skin Prep Used: Betadine Draped: Yes Skin Infiltration - Enter Amount Used in Comment Field: 1% Xylocaine (mL): Yes Spinal Needle Used: 18 Hustead 80 mm Local Anesthetic - Enter Amount Used in Comment Field: 5.0 % Xylocaine with Dextrose (ml): Yes Number of Centimeters Catheter Threaded: 4 Bioclusive Dressing Applied: Yes - - Additional Details: Requests epidural for POLO analgesia. Reviewed risks/benefits and she wishes to proceed. History obtained and chart reviewed. Monitors, sitting, landmarks, betadine prep, skin wheal L4-5, #18 hustead passed and crisp SUNG 1st pass. Cath easily 4cm and 5ml test dose neg. Cath secured and PCEA started. Laboratory Results 04/24/17 04/24/17 Range/Units 13:16 14:25 WBC 7.96 (4.8-10.8) 10^3/uL RBC 4.36 (4.20-5.40) 10^6/uL Hgb 12.8 (12.0-16.0) g/dL Hct 37.7 (37.0-47.0) % MCV 86.5 (81-99) FL MCH 29.4 (27-31) PG MCHC 34.0 (33-37) g/dL RDW Std Deviation 45.1 (39-50) fL RDW Coeff of Cristhian 14.6 H (11.5-14.5) % Plt Count 183 (140-350) 10*3/uL MPV 11.2 (7.4-12.2) [place] Amnio [place]ld Other Info Negative (NEGATIVE) Vital Signs (Last 8 hours) Pulse BP 04/24/17 15:50 71 122/82 04/24/17 15:00 82 Vital Signs (24 hrs) Temp Pulse Resp BP Pulse Ox 04/24/17 15:50 71 122/82 04/24/17 15:00 82 04/24/17 13:00 98.2 F 20 98 04/24/17 12:29 98.2 F 104 H 16 111/73 97 04/24/17 12:26 98.2 F 104 H 16 111/73 97
[2017-04-24] MEDS ORDERED: LIDOCAINE 2%/ EPI 1:200,000 - 20 ML VIAL ONE (21:21)
[2017-04-24] MEDS ORDERED: BUPivacaine Inj 0.25% PF - 10ml vial ONE (21:22)
[2017-04-24] MEDS ORDERED: Sodium Chloride 0.9% vial 10 ML ONE (21:22)
--- NOTE | 2017-04-24 21:29 | CRNA.PROGR ---
Anesthesia Note Anesthesia Progress Note: She is progressing rapidly. 5cm when epidural placed and now 9. Epidural not quite catching her up so 15ml bolus of 1/8% marcaine given.
[2017-04-24] MEDS ORDERED: fentaNYL 2 MCG/BUPIVACAINE 0.0625%/NS 0.9% 250 ML BAG EPIDURAL SCH (21:30)
[2017-04-25] MEDS: Lactated Ringers-OB Dept 1,000 ML PRIMARY IV SCH
--- NOTE | 2017-04-25 00:15 | OB.DEL.SUM ---
Delivery Note Delivery Summary: Pt is a 21 yo G1 now P1 at 37 6/7 weeks by early u/s who presented today with painful contractions and diarrhea. Upon presentation, her cervix was 4-5/80/-1. She was admitted. She underwent amniotomy with clear fluid at 1545. Pitocin augmentation was started at 1914 due to no cervical change despite painful contractions x 4 hours. She quickly went to complete. She began pushing at 2214 and delivered a viable female over an intact perineum at 2235 in the [facility] presentation. Her nose and mouth were suctioned with a bulb suction and the cord was doubly clamped by myself and cut by the aunt of the baby. She was placed on mom's chest. Cord blood and cord gases were obtained. The placenta delivered spontaneously and intact with a 3 vessel cord a short time later. The vagina and perineum were examined and a right labial laceration was noted and repaired in the normal fashion with 3-0 vicryl rapide suture. Likewise, a smaller left labial laceration was noted and repaired in the normal fashion with 3-0 vicryl rapide suture. No other lacerations were noted. Apgars were 8 at 1 minute and 7 at 5 minutes. She weighed 6#10.9 oz. Baby is currently on CPAP in the nursery secondary to respiratory distress. Mom is in good condition. - Patient Problems (1) Term Current Visit: Yes Status: Acute
[2017-04-25] MEDS ORDERED: METHYLERGONOVINE MALEATE 0.2 MG/1 ML VIAL IM PRN (02:37)
[2017-04-25] MEDS ORDERED: Methylergonovine Tab 0.2 MG TAB PO PRN (02:37)
[2017-04-25] MEDS ORDERED: Nalbuphine Inj 20 MG/ML Ampule IVP PRN (02:37)
[2017-04-25] MEDS ORDERED: ONDANSETRON 4 MG/2 ML VIAL IVP PRN (02:37)
[2017-04-25] MEDS ORDERED: NORMAL SALINE 10 ML SYRINGE FLUSH IVP PRN (02:37)
[2017-04-25] MEDS ORDERED: GLYCERIN/WITCH HAZEL 1 BOX TOPICAL PRN (02:37)
[2017-04-25] MEDS ORDERED: OXYTOCIN 10 UNIT/1 ML IM ONE (02:37)
[2017-04-25] MEDS ORDERED: DIPH,PERTUSS,TET(ADACEL) VAC/PF 0.5 ML (Tdap) IM SCH (02:37)
[2017-04-25] MEDS ORDERED: Oxytocin 20 Units + LR 1,000 ML IV SCH (02:37)
[2017-04-25] MEDS ORDERED: diphenhydrAMINE 50 MG/1 ML VIAL IVP PRN (02:37)
[2017-04-25] MEDS ORDERED: CALCIUM CARBONATE 500 MG (TUMS) CHEWABLE TABLET PO PRN (02:37)
[2017-04-25] MEDS ORDERED: HYDROcodone-APAP 5 MG -325 MG TABLET PO PRN (02:37)
[2017-04-25] MEDS ORDERED: Ondansetron ODT Tab 4 MG TAB PO PRN (02:37)
[2017-04-25] MEDS ORDERED: MISOPROSTOL 200 MCG TABLET RECTAL ONE (02:37)
[2017-04-25] MEDS ORDERED: Carboprost Inj 250 MCG/ML AMP IM PRN (02:37)
[2017-04-25] MEDS ORDERED: ACETAMINOPHEN 325 MG TABLET PO PRN (02:37)
[2017-04-25] MEDS ORDERED: BENZOCAINE/MENTHOL SPRAY 56 GM BOTTLE TOPICAL PRN (02:37)
[2017-04-25] MEDS ORDERED: diphenhydrAMINE 25 MG CAPSULE PO PRN (02:37)
[2017-04-25] MEDS ORDERED: LANOLIN HPA 40 GM TUBE TOPICAL PRN (02:37)
[2017-04-25] MEDS: IBUPROFEN 800 MG TABLET PO PRN ×2 (03:26→16:30)
[2017-04-25 06:00] LABS: HEMATOCRIT 29.4 % (37.0-47.0); MEAN CORPUSCULAR HEMOGLOBIN 29.6 PG (27-31); RED BLOOD COUNT 3.38 10^6/uL (4.20-5.40)
--- NOTE | 2017-04-25 08:12 | CRNA.PROGR ---
Anesthesia Note Anesthesia Progress Note: She is resting quietly in bed. Has been ambulatory ad khari since epidural dc'd. Epidural was dc'd by OB rn intact. She has no complaints or concerns about her anesthetic care at this time. Laboratory Results 04/24/17 04/24/17 04/25/17 Range/Units 13:16 14:25 05:20 WBC 7.96 13.99 H (4.8-10.8) 10^3/uL RBC 4.36 3.38 L (4.20-5.40) 10^6/uL Hgb 12.8 10.0 L (12.0-16.0) g/dL Hct 37.7 29.4 L (37.0-47.0) % MCV 86.5 87.0 (81-99) FL MCH 29.4 29.6 (27-31) PG MCHC 34.0 34.0 (33-37) g/dL RDW Std Deviation 45.1 43.0 (39-50) fL RDW Coeff of Cristhian 14.6 H 14.0 (11.5-14.5) % Plt Count 183 156 (140-350) 10*3/uL MPV 11.2 11.0 (7.4-12.2) [place] Am[place] Other Info Negative (NEGATIVE) Blood Type O NEGATIVE Antibody Screen Positive Antibody Identification Anti-D Screen Positive (NEG) Vital Signs (24 hrs) Temp Pulse Pulse Resp Resp BP BP 04/25/17 05:21 98.2 F 72 18 110/79 04/25/17 00:00 86 18 137/77 04/24/17 23:45 79 18 139/84 04/24/17 23:30 98.3 F 87 18 118/83 04/24/17 23:00 90 18 125/76 04/24/17 22:45 89 18 129/81 04/24/17 21:00 80 18 124/72 04/24/17 20:00 97.3 F 75 18 126/77 04/24/17 15:50 71 122/82 04/24/17 15:00 82 04/24/17 13:00 98.2 F 20 04/24/17 12:30 98.2 F 104 H 16 111/73 04/24/17 12:29 98.2 F 104 H 16 111/73 04/24/17 12:26 98.2 F 104 H 16 111/73 Pulse Ox 04/25/17 05:21 99 04/25/17 00:00 95 04/24/17 23:45 96 04/24/17 23:30 98 04/24/17 23:00 97 04/24/17 22:45 97 04/24/17 21:00 04/24/17 20:00 99 04/24/17 15:50 04/24/17 15:00 04/24/17 13:00 98 04/24/17 12:30 97 04/24/17 12:29 97 04/24/17 12:26 97
[2017-04-25] MEDS ORDERED: RHO(D) IMMUNE GLOBULIN 1500 UNIT(300 mcg)SYRIN IM PRN (09:00)
[2017-04-25] MEDS: Prenatal Multivitamin Tab 1 TAB TAB PO SCH (15:08)
[2017-04-25] MEDS: DOCUSATE 100 MG CAPSULE PO SCH ×2 (15:08→21:18)
[2017-04-25] MEDS: FERROUS GLUCONATE 324 MG TABLET PO SCH (21:23)
[2017-04-26] MEDS: IBUPROFEN 800 MG TABLET PO PRN (02:00)
[2017-04-26] MEDS: FERROUS GLUCONATE 324 MG TABLET PO SCH (09:34)
[2017-04-26] MEDS: Prenatal Multivitamin Tab 1 TAB TAB PO SCH (09:34)
[2017-04-26] MEDS: DOCUSATE 100 MG CAPSULE PO SCH (09:34)
[2017-04-26 11:04] VITALS: RESP 18; TEMP 98
== END 2017-04-26 13:16 | disposition home or self-care (01) | DRG 775 ==
LOC: OBOP 12:19 → OBIP 13:35
PROVIDERS: ADMIT Family Medicine; ATTEND Family Medicine
PROC: 10E0XZZ Delivery of Products of Conception, External Approach (ICD-10-PCS; principal; 2017-04-24)
PROC: 0UQMXZZ Repair Vulva, External Approach (ICD-10-PCS; 2017-04-24)
DX: O70.0 First degree perineal laceration during delivery (principal); Z3A.37 37 weeks gestation of pregnancy; Z37.0 Single live birth
CPT/HCPCS: 36415; 81003; 84112; 85027; 85460; 86850; 86870; 86900; 86901; 86970; A4216; J2001; J2790; J3010; J3490; J7120